=== PATIENT | female | born 1960 | race Caucasian/White ===

== ENCOUNTER 2024-05-14 02:16 | Day surgery (SDC) | payer BC, SELFPAY ==
[2024-05-03 14:23] VITALS: BMI 37.1
--- NOTE | 2024-05-13 15:08 | P.PNAN_ITS ---
Anes - Eval Pre Procedure Procedure: Operation Date: 05/14/24 08:00 Proposed Procedures p Colonoscopy - Roosevelt Flores MD Date/Time: 05/13/24 15:08 Pre Op Diagnosis: Personal history colon polyps, Family history lynette Patient Data Age: 64 Gender: F Height: 1.68 m Weight: 104.5 kg Allergies Allergy/AdvReac Type Severity Reaction Status Date / Time ragweed pollen AdvReac Mild Cough Verified 05/03/24 14:21 Home Medications Medication Instructions Recorded Confirmed Type amlodipine 10 mg tablet 10 mg PO DAILY 12/15/23 05/03/24 History aspirin 81 mg tablet,delayed 81 mg PO DAILY 12/15/23 05/03/24 History release (Adult Aspirin Regimen) losartan 50 mg tablet 50 mg PO DAILY 12/15/23 05/03/24 History mometasone-formoterol HFA 200 2 puff inhalation DAILY 05/03/24 05/03/24 History mcg-5 mcg/actuation aerosol inhaler (Dulera) Patient hx anesthesia problems: none Family hx anesthesia problems: none Results Review: All pre-operative results and documents have been reviewed as part of the pre- operative evaluation. [facility], [facility] Surgical History Surgical History H/O lateral meniscus repair of right knee (~2020) History of bladder repair surgery History of lateral meniscus repair of left knee (~2023) History of partial hysterectomy (~2008) Family History Family History Father Asthma Hypertension Mother Carcinoma of colon Grandparent Diabetes mellitus Social History Social History Social History: Caffeine 1-2 cups of coffee daily Smoking packs per day: 1.5 Smoking cigarettes per day: 30.0 Years smoked: 10 Smoking pack-years: 15.00 Smoking status: Former smoker Tobacco type: cigarettes Smoking end date: 07/18/97 Alcohol intake: current Alcohol use details: patient reports having 1 sandra 4X per year Substance use: never Substance use type: does not use Do You Feel Safe in your Home?: Yes Lack of Transportation: No Lack of Food: Never True Current Housing: I Have Housing Concerned About Future Housing: No Difficulty Paying Gas/Electric Bills: No Difficulty Paying for Meds: No Currently Unemployed: No Education: High School Diploma/GED Difficulty w/ Childcare or Family Care: No Living arrangements: alone Occupation/Education: occupation 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
[2024-05-14 06:49] VITALS: BP 136/84; PULSE 81; RESP 20; TEMP 36.5; O2SAT 96; BMI 35.9
[2024-05-14] MEDS: LACTATED RINGERS 1,000 ML 150 ML IV CONT (07:00)
--- NOTE | 2024-05-14 07:31 | WPDANESEPPF ---
Anes - Initial Pre Proc Eval Procedure: Operation Date: 05/14/24 08:00 Proposed Procedures p Colonoscopy - Roosevelt Flores MD Date/Time: 05/14/24 07:31 Surgeon: Roosevelt Flores MD Pre Op Diagnosis: Personal history colon polyps, Family history lynette Patient Data Age: 64 Gender: F Height: 1.68 m Weight: 101.1 kg Last Vital Signs Temp 36.5 C 05/14/24 06:49 Pulse 81 05/14/24 06:49 Resp 20 05/14/24 06:49 BP 136/84 05/14/24 06:49 Pulse Ox 96 05/14/24 06:49 O2 Del Method Room Air 05/14/24 06:49 Allergies Allergy/AdvReac Type Severity Reaction Status Date / Time ragweed pollen AdvReac Mild Cough Verified 05/14/24 06:48 Home Medications Medication Instructions Recorded Confirmed Type amlodipine 10 mg tablet 10 mg PO DAILY 12/15/23 05/14/24 History aspirin 81 mg tablet,delayed 81 mg PO DAILY 12/15/23 05/14/24 History release (Adult Aspirin Regimen) losartan 50 mg tablet 50 mg PO DAILY 12/15/23 05/14/24 History mometasone-formoterol HFA 200 2 puff inhalation DAILY 05/03/24 05/14/24 History mcg-5 mcg/actuation aerosol inhaler (Dulera) Patient hx anesthesia problems: none Family hx anesthesia problems: none Results Review: All pre-operative results and documents have been reviewed as part of the pre-operative evaluation. [facility] Surgical History Surgical History H/O lateral meniscus repair of right knee (~2020) History of bladder repair surgery History of lateral meniscus repair of left knee (~2023) History of partial hysterectomy (~2008) Family History Family History Father Asthma Hypertension Mother Carcinoma of colon Grandparent Diabetes mellitus Social History Social History Social History: Caffeine 1-2 cups of coffee daily Smoking packs per day: 1.5 Smoking cigarettes per day: 30.0 Years smoked: 10 Smoking pack-years: 15.00 Smoking status: Former smoker Tobacco type: cigarettes Smoking end date: 07/18/97 Alcohol intake: current Alcohol use details: patient reports having 1 sandra 4X per year Substance use: never Substance use type: does not use Do You Feel Safe in your Home?: Yes Lack of Transportation: No Lack of Food: Never True Current Housing: I Have Housing Concerned About Future Housing: No Difficulty Paying Gas/Electric Bills: No Difficulty Paying for Meds: No Currently Unemployed: No Education: High School Diploma/GED Difficulty w/ Childcare or Family Care: No Living arrangements: alone Occupation/Education: occupation 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[employer] Gender identity (if verbalized by the patient): Female Spiritual care concerns: No Agree to blood products: Yes Anes - Eval Final PreProcedure Day of Procedure 05/14/24 07:31 Patient weight: obese Heart: regular rate and rhythm Lungs: clear to auscultation Airway: Mallampati scale class II Neurological: alert and oriented Last oral intake: >/= 8 hours ASA classification: III Emergent: no Anesthetic plan: proceed Anesthesia type and monitoring: general GIVS and standard monitoring Results Review: All pre-operative results and documents have been reviewed as part of the pre-operative evaluation. Informed Consent: The patient's anesthetic plan and its attendant risks and benefits were discussed with the patient/family/POA. Questions were solicited and answers provided to the satisfaction of the patient/family/POA.
--- NOTE | 2024-05-14 07:51 | P.HP_ITS ---
History of Present Illness History of Present Illness Consent: Risks, benefits, and alternatives have been discussed and questions answered. Patient agrees to proceed with procedure. Chief complaint: Personal history colon polyps, Family history lynette Narrative: Ale Morris is a 64 year old female with colon polyp, mother had colon cancer Review of Systems Review of Systems: All systems reviewed & are unremarkable except as noted in HPI and below PMFSH Surgical History Surgical History H/O lateral meniscus repair of right knee (~2020) History of bladder repair surgery History of lateral meniscus repair of left knee (~2023) History of partial hysterectomy (~2008) Family History Family History Father Asthma Hypertension Mother Carcinoma of colon Grandparent Diabetes mellitus Social History Social History Social History: Caffeine 1-2 cups of coffee daily Smoking packs per day: 1.5 Smoking cigarettes per day: 30.0 Years smoked: 10 Smoking pack-years: 15.00 Smoking status: Former smoker Tobacco type: cigarettes Smoking end date: 07/18/97 Alcohol intake: current Alcohol use details: patient reports having 1 sandra 4X per year Substance use: never Substance use type: does not use Do You Feel Safe in your Home?: Yes Lack of Transportation: No Lack of Food: Never True Current Housing: I Have Housing Concerned About Future Housing: No Difficulty Paying Gas/Electric Bills: No Difficulty Paying for Meds: No Currently Unemployed: No Education: High School Diploma/GED Difficulty w/ Childcare or Family Care: No Living arrangements: alone Occupation/Education: occupation 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 - [employer] Gender identity (if verbalized by the patient): Female Spiritual care concerns: No Agree to blood products: Yes Meds Home Medications and Allergies Home Medications Medication Instructions Recorded Confirmed Type amlodipine 10 mg tablet 10 mg PO DAILY 12/15/23 05/14/24 History aspirin 81 mg tablet,delayed 81 mg PO DAILY 12/15/23 05/14/24 History release (Adult Aspirin Regimen) losartan 50 mg tablet 50 mg PO DAILY 12/15/23 05/14/24 History mometasone-formoterol HFA 200 2 puff inhalation DAILY 05/03/24 05/14/24 History mcg-5 mcg/actuation aerosol inhaler (Dulera) Allergies Allergy/AdvReac Type Severity Reaction Status Date / Time ragweed pollen AdvReac Mild Cough Verified 05/14/24 06:48 Vital Signs Vital Signs - 24 hr 05/14/24 06:49 Temperature 97.7 F Pulse Rate 81 Respiratory Rate 20 Blood Pressure 136/84 Pulse Oximetry 96 Oxygen Delivery Room Air Exam Const: General: comfortable and no acute distress HENMT: Face/Nose/Sinus: Normal nares present Eyes: General: appearance normal, both eyes and all related structures Neck: Neck: no JVD Resp: Auscultation: clear to auscultation bilaterally Cardio: Rate: regular rate Rhythm: regular rhythm GI: Inspection: non-distended GI Palp: Yes Soft to palpation Skin: General skin exam: normal color Neuro: General: gait normal Speech: normal speech Extrem: General: normal to inspection Psych: Mental Status: mental status grossly normal Assessment and Plan Assessment and plan (1) Family history of colon cancer in mother: Code(s): Z80.0 - Family history of malignant neoplasm of digestive organs Status: Acute Assessment and Plan: colonoscopy
[2024-05-14 08:14] VITALS: BP 108/60; PULSE 72; RESP 15; O2SAT 97
[2024-05-14 08:24] VITALS: BP 94/65; PULSE 71; RESP 23; O2SAT 96
[2024-05-14 08:34] VITALS: BP 105/65; PULSE 70; RESP 18; O2SAT 96
== END 2024-05-14 08:38 | disposition home or self-care (01) ==
PROVIDERS: PCP Family Medicine; Visit Provider Internal Medicine Gastroenterology
PROC: 0DJD8ZZ Inspection of Lower Intestinal Tract, Via Natural or Artificial Opening Endoscopic (ICD-10-PCS; CPT 45378; principal; 2024-05-14 08:00)
DX: Z12.11 Encounter for screening for malignant neoplasm of colon (principal); D12.2 Benign neoplasm of ascending colon; D12.4 Benign neoplasm of descending colon; D12.5 Benign neoplasm of sigmoid colon; D12.8 Benign neoplasm of rectum; K64.8 Other hemorrhoids; K57.30 Diverticulosis of large intestine without perforation or abscess without bleeding; E66.9 Obesity, unspecified; Z68.36 Body mass index [BMI] 36.0-36.9, adult; Z79.82 Long term (current) use of aspirin; Z79.51 Long term (current) use of inhaled steroids; Z98.890 Other specified postprocedural states; Z87.891 Personal history of nicotine dependence; Z80.0 Family history of malignant neoplasm of digestive organs
CPT/HCPCS: 45385; 88305; J2003; J2704; J7120